=== PATIENT | male | born 1980 | race Caucasian/White ===

== ENCOUNTER 2017-01-01 09:32 | Emergency (ER) | payer OTHER ==
[2017-01-01 09:13] LABS: BASOPHIL 0.2 % (0-2); EOSINOPHIL 0 % (0-5); HCT 50.5 % (42.0-52.0); MCHC 35.6 g/dL (32.0-36.0); MCV 81.5 fL (78.0-100.0); MONOCYTE 4.3 % (0-12); MPV 8.4 fL (6.0-9.5); NEUTROPHIL 93.5 % (41-80); PLT 346 K/uL (150-400); RDW 12.6 % (11.5-14.0)
[2017-01-01 09:15] LABS: WBC 18.4 K/uL (4.0-10.5)
[2017-01-01 09:30] LABS: ACETAMINOPHEN (TYLENOL) < 5.0 ug/mL (10.0-30.0); ALCOHOL (ETOH) MEDICAL NONE DETECTED; SALICYLATE < 6 ug/mL (0-300)
[2017-01-01 09:34] LABS: ALBUMIN 4.8 g/dL (3.5-5.0); BILIRUBIN - TOTAL 0.6 mg/dL (0.1-1.0); CREATININE 1.3 mg/dL (0.7-1.2); GLOBULIN (CALCULATION) 4.2 g/dL (2.2-4.2); POTASSIUM 4.3 mmol/L (3.5-5.1)
[2017-01-01 10:55] LABS: BILIRUBIN NEGATIVE (NEGATIVE); BLOOD 2+ Ery/uL (NEGATIVE); CLARITY CLEAR (CLEAR); COLOR AMBER (YELLOW); GLUCOSE (U) NORMAL (NORMAL); KETONE (U) 1+ (SMALL) mg/dL (NEGATIVE); LEUKOCYTES NEGATIVE Leu/uL (NEGATIVE); NITRITE NEGATIVE (NEGATIVE); PROTEIN 2+ mg/dL (NEGATIVE); SPECIFIC GRAVITY >=1.030 (1.001-1.030); UROBILINOGEN 0.2 mg/dL (0.2-1.0)
[2017-01-01 10:59] LABS: SPERM PRESENT; SQUAMOUS EPITHELIAL CELLS RARE; URINARY RBC RARE
[2017-01-01 11:09] LABS: AMPHETAMINES POSITIVE (NEGATIVE); BARBITURATES NEGATIVE (NEGATIVE); BENZODIAZEPINES NEGATIVE (NEGATIVE); COCAINE NEGATIVE (NEGATIVE); MARIJUANA (THC) POSITIVE (NEGATIVE); METHADONE NEGATIVE (NEGATIVE); TRICYCLIC ANTIDEPRESSANT NEGATIVE (NEGATIVE)
== END 2017-01-01 11:01 | disposition left against medical advice (07) ==
LOC: FER 09:32
PROVIDERS: Emergency Medicine
DX: F15.10 Other stimulant abuse, uncomplicated (principal); F11.10 Opioid abuse, uncomplicated; F17.200 Nicotine dependence, unspecified, uncomplicated
CPT/HCPCS: 36415; 71010; 80053; 80305; 81001; 82550; 84484; 85025; 93005; G0480

== ENCOUNTER 2021-04-24 14:05 | Emergency (ER) | payer OTHER ==
[~2021-04-24 14:05] MED LIST: AMOXICILLIN875 MG PO; CIPRO500 MG PO; FLOMAX0.4 MG PO; IBUPROFEN800 MG PO; KEFLEX250 MG PO; NORCO 5-325 TA1 EACH PO; PERCOCET 5-3251 EACH PO; SUBOXONE 8 MG-1 EACH SL
[2021-04-24 14:54] LABS: BASOPHIL 0.6 % (0-2); EOSINOPHIL 1.7 % (0-5); HCT 50.2 % (42.0-52.0); HGB 17.5 g/dl (13.2-18.0); LYMPHOCYTE 19.9 % (15-48); MCH 29.7 pg (25.0-31.0); MCHC 34.9 g/dL (32.0-36.0); MCV 85.1 fL (78.0-100.0); MONOCYTE 6.7 % (0-12); MPV 8.5 fL (6.0-9.5); NEUTROPHIL 70.7 % (41-80); NRBC 0; PLT 307 K/uL (150-400); RDW 12.3 % (11.5-14.0); WBC 8.5 K/uL (4.0-10.5)
[2021-04-24 15:27] LABS: ALBUMIN 4.1 g/dL (3.4-5.0); ALKALINE PHOSHATASE 100 U/L (46-116); ALT 28 U/L (16-63); AST 21 U/L (15-37); BUN 11 mg/dL (7-18); BUN/CREAT RATIO (CALC) 12.1 RATIO; CHLORIDE 103 mmol/L (98-107); CO2 (BICARBONATE) 28 mmol/L (21-32); CREATININE 0.91 mg/dL (0.67-1.17); GLUCOSE 140 mg/dL (74-106); POTASSIUM 4.4 mmol/L (3.5-5.1); TOTAL PROTEIN 8.1 g/dL (6.4-8.2)
[2021-04-24 15:28] LABS: ACETAMINOPHEN (TYLENOL) < 2.0 ug/mL (10.0-30.0)
[2021-04-24 15:52] LABS: BILIRUBIN NEGATIVE (NEGATIVE); BLOOD NEGATIVE Ery/uL (NEGATIVE); CLARITY CLEAR (CLEAR); COLOR YELLOW (YELLOW); GLUCOSE (U) NORMAL (NORMAL); LEUKOCYTES NEGATIVE Leu/uL (NEGATIVE); NITRITE NEGATIVE (NEGATIVE); PROTEIN NEGATIVE (NEGATIVE); SPECIFIC GRAVITY 1.015 (1.001-1.030); UROBILINOGEN 0.2 mg/dL (0.2-1.0); pH 7.5 (5.0-9.0)
[2021-04-24 15:59] LABS: AMPHETAMINES POSITIVE (NEGATIVE); BARBITURATES NEGATIVE (NEGATIVE); ECSTASY (MDMA) NEGATIVE (NEGATIVE); MARIJUANA (THC) NEGATIVE (NEGATIVE); METHADONE NEGATIVE (NEGATIVE); OPIATES NEGATIVE (NEGATIVE); OXYCODONE NEGATIVE (NEGATIVE)
== END 2021-04-25 02:45 ==
LOC: FER 14:05
PROVIDERS: Emergency Medicine
DX: S11.91XA Laceration without foreign body of unspecified part of neck, initial encounter (principal); F32.9 Major depressive disorder, single episode, unspecified; Z23 Encounter for immunization; Z20.822 Contact with and (suspected) exposure to COVID-19; F17.200 Nicotine dependence, unspecified, uncomplicated; X78.1XXA Intentional self-harm by knife, initial encounter
CPT/HCPCS: 36415; 80053; 80305; 81003; 85025; 90471; 90715; G0480; U0002